=== PATIENT | male | born 2000 | race Caucasian/White ===

== ENCOUNTER 2025-08-04 16:57 | Emergency (ER) | payer OTHER ==
[~2025-08-04] VITALS: Ht 177.8 cm; Wt 82.0 kg
[2025-08-04 17:07] VITALS: O2SAT 100
[2025-08-04] MEDS ORDERED: IBUP-2028 MT (17:52)
[2025-08-04 18:08] VITALS: BP 140/89; PULSE 74; RESP 14; TEMP 36.7; O2SAT 100
== END 2025-08-04 18:10 | disposition home or self-care (01) ==
LOC: ER 16:57
DX: S62.637A Displaced fracture of distal phalanx of left little finger, initial encounter for closed fracture (principal); S62.627A Displaced fracture of middle phalanx of left little finger, initial encounter for closed fracture; W50.1XXA Accidental kick by another person, initial encounter; Y93.66 Activity, soccer; Y92.322 Soccer field as the place of occurrence of the external cause; Y99.8 Other external cause status
CPT/HCPCS: 29130; 73130; 99283